=== PATIENT | male | born 1945 | race Caucasian/White ===

== ENCOUNTER 2020-12-09 16:02 | Inpatient (IN) | payer MEDICARE, OTHER ==
[~2020-12-09] VITALS: Ht 182.9 cm; Wt 88.9 kg
[2020-12-09 17:38] LABS: BASOPHILS # (AUTO) 0.1 K/uL (0.0-8.0); EOSINOPHILS # (AUTO) 0.2 K/uL (0.0-0.7); EOSINOPHILS % (AUTO) 2.2 % (0.0-7.0); HEMOGLOBIN 11.8 g/dL (12.5-16.3); LYMPHOCYTES % (AUTO) 34.7 % (20.5-51.5); MEAN CORPUSCULAR HEMOGLOBIN 30.4 uug (23.8-33.4); MEAN CORPUSCULAR HGB CONC 34 g/dL (32.5-36.3); MEAN CORPUSCULAR VOLUME 90.3 fL (73.0-96.2); MONOCYTES # (AUTO) 0.6 K/uL (2.0-10.0); MONOCYTES % (AUTO) 6.8 % (0.0-11.0); NEUTROPHILS # (AUTO) 4.7 K/uL (1.8-8.9); NEUTROPHILS % (AUTO) 55.3 % (38.5-71.5); PLATELET COUNT (AUTO) 228 K/uL (152-348); RED BLOOD CELL COUNT(AUTO) 3.88 MIL/uL (4.06-5.63); WHITE BLOOD COUNT (AUTO) 8.5 K/uL (3.6-10.2)
[2020-12-09 17:47] LABS: CARBON DIOXIDE 32 mmol/L (21-32); CHLORIDE 103 mmol/L (98-107); CREATININE 1.3 mg/dL (0.6-1.3); GLUCOSE 149 mg/dL (74-106); POTASSIUM 4.3 mmol/L (3.5-5.1); UREA NITROGEN, BLOOD 25 mg/dL (7-18)
[2020-12-09 17:54] LABS: ACETAMINOPHEN < 2.0 ug/mL (10-30); ALANINE AMINOTRANSFERASE 29 U/L (16-63); ALKALINE PHOSPHATASE 65 U/L (50-136); ASPARTATE AMINOTRANSFERASE 10 U/L (15-37); BILIRUBIN,DIRECT 0.1 mg/dL (0.0-0.2); BILIRUBIN,TOTAL 0.3 mg/dL (0.2-1.0); CREATINE KINASE, TOTAL 67 U/L (39-308); ETHANOL < 3 MG/DL (0-0)
[2020-12-09 18:00] LABS: THYROID STIMULATING HORMONE 1.412 mIU/mL (0.358-3.740)
[2020-12-09] MEDS ORDERED: CHOL-9 PO (18:35)
[2020-12-09] MEDS ORDERED: LISI10TA29 PO (18:35)
[2020-12-09] MEDS ORDERED: FERR325T30 PO (18:35)
[2020-12-09] MEDS ORDERED: MULT-594 PO (18:35)
[2020-12-09] MEDS ORDERED: ASCO500C6 PO (18:35)
[2020-12-09] MEDS ORDERED: TAMS-3 PO (18:35)
[2020-12-09] MEDS ORDERED: DIVA250T4 PO (18:35)
[2020-12-09] MEDS ORDERED: INSU100V7 SQ (18:35)
[2020-12-09] MEDS ORDERED: DEXT15DR6 EACHEYE (18:35)
[2020-12-09] MEDS ORDERED: BENZ0.5T43 PO (18:35)
[2020-12-09] MEDS ORDERED: BLOO-1152 MC (18:35)
[2020-12-09] MEDS ORDERED: ATOR40TA PO (18:35)
[2020-12-09] MEDS ORDERED: LEVE1000 PO (18:35)
[2020-12-09] MEDS ORDERED: AMLO5TAB4 PO (18:35)
[2020-12-09] MEDS ORDERED: NITR0.4T SL (18:35)
[2020-12-09 21:05] LABS: *BILIRUBIN,URIN NEGATIVE (NEGATIVE); *BLOOD, URINE NEGATIVE (NEGATIVE); *CLARITY,URINE CLEAR (CLEAR); *COLOR,URINE YELLOW (YELLOW); *KETONES,URINE NEGATIVE (NEGATIVE); *UROBILINOGEN,URINE 0.2 E.U./dl (NORMAL); LEUKOCYTE ESTERASE ,URINE NEGATIVE (NEGATIVE); NITRITE, URINE POSITIVE (NEGATIVE); PH,URINE 5.5 (5.0-8.0); UGLUCOSE NEGATIVE (NEGATIVE)
[2020-12-09 21:18] LABS: BACTERIA,URINE FEW /HPF (NONE SEEN); RBC,URINE 0-3 /HPF (0-3); WBC,URINE 0-3 /HPF (0-3)
[2020-12-09 21:19] LABS: SQUAMOUS EPITHELIAL CELL,UR NONE SEEN /HPF (NONE SEEN)
[2020-12-09 21:22] LABS: *AMPHETAMINE, URINE NEGATIVE (NEGATIVE); *CANNABINOID, URINE NEGATIVE (NEGATIVE); *COCCAINE, URINE NEGATIVE (NEGATIVE); *OPIATE, URINE NEGATIVE (NEGATIVE); *PHENCYCLIDINE SCREEN,URINE NEGATIVE (NEGATIVE)
[2020-12-09] MEDS ORDERED: DEXTROSE 50% 50 ML DISP.SYRIN IV PRN (23:00)
[2020-12-09] MEDS ORDERED: NITROGLYCERIN 0.4 MG/TAB BOTTLE SL PRN (23:00)
[2020-12-09] MEDS ORDERED: hydrALAZINE HCL 25 MG TABLET PO PRN (23:00)
--- NOTE | 2020-12-09 23:40 | NUR ---
transferd to MHU via gurny with no distress noted.
[2020-12-09 23:50] VITALS: BP 181/99
[2020-12-10] MEDS ORDERED: BLOOD SUGAR DIAGNOSTIC 1 EACH STRIP VI ONE
[2020-12-10] MEDS ORDERED: MAG HYDROX/AL HYDROX/SIMETH 30 ML LIQUID UDC PO PRN
[2020-12-10] MEDS ORDERED: ACETAMINOPHEN 325 MG TABLET PO PRN
[2020-12-10] MEDS ORDERED: TEMAZEPAM 7.5 MG CAPSULE PO PRN
[2020-12-10] MEDS ORDERED: MAGNESIUM HYDROXIDE 30 ML LIQUID UDC PO PRN
--- NOTE | 2020-12-10 04:13 | NUR ---
Pt received from ER at 2345 in a safe, stable condition. Admitted to MHU on 5150 DTS for severe depression, low motivation, low energy and being gravely disable. Pt denies hallucinations and SI. Assisted to his room, oriented to the unit and his surroundings. Upon assessment, pt is alert and oriented x 1. No complaints of pain at this time, pt is asleep with no s/s of distress. Cooperative with care and compliant with meds. Interacts appropriately with staff at the time of admission. Hydralazine PRN administered for increased BP. Safety precautions in place, pt kept comfortable. Frequent rounds done to ensure safety. Dr. Cramer and Dr. Paez aware of the admission. Will continue to monitor.
[2020-12-10] MEDS: levETIRAcetam 500 MG TABLET PO SCH ×2 (06:24→17:17)
--- NOTE | 2020-12-10 06:50 | NUR ---
Pt's customer contact representative, Germán Miguel ([email or web address]) attempted to be made aware of pt's admission to MHU per protocol. Message left on voicemail, requesting call back to the unit.
[2020-12-10 07:30] VITALS: BP 97/64
[2020-12-10] MEDS ORDERED: BLOOD SUGAR DIAGNOSTIC 1 EACH STRIP VI SCH (07:30)
[2020-12-10] MEDS: BLOOD SUGAR DIAGNOSTIC 1 EACH STRIP VI SCH ×4 (07:33→20:19)
[2020-12-10 08:18] LABS: BASOPHILS # (AUTO) 0.1 K/uL (0.0-8.0); BASOPHILS % (AUTO) 1.1 % (0.0-2.0); EOSINOPHILS # (AUTO) 0.2 K/uL (0.0-0.7); EOSINOPHILS % (AUTO) 1.9 % (0.0-7.0); HEMATOCRIT 37.5 % (36.7-47.1); HEMOGLOBIN 12.6 g/dL (12.5-16.3); LYMPHOCYTES # (AUTO) 2.5 K/uL (20.0-40.0); LYMPHOCYTES % (AUTO) 27.6 % (20.5-51.5); MEAN CORPUSCULAR HGB CONC 34 g/dL (32.5-36.3); MEAN CORPUSCULAR VOLUME 89.4 fL (73.0-96.2); MONOCYTES # (AUTO) 0.6 K/uL (2.0-10.0); MONOCYTES % (AUTO) 6.5 % (0.0-11.0); NEUTROPHILS # (AUTO) 5.6 K/uL (1.8-8.9); NEUTROPHILS % (AUTO) 62.9 % (38.5-71.5); PLATELET COUNT (AUTO) 225 K/uL (152-348); WHITE BLOOD COUNT (AUTO) 8.9 K/uL (3.6-10.2)
[2020-12-10] MEDS: INSULIN REGULAR, HUMAN 300 UNIT/3 ML VIAL SQ PRN ×3 (08:39→19:20)
[2020-12-10 08:42] LABS: THYROID STIMULATING HORMONE 1.307 mIU/mL (0.358-3.740)
[2020-12-10] MEDS: ASCORBIC ACID 500 MG TABLET PO SCH (08:55)
[2020-12-10] MEDS: CHOLECALCIFEROL 1,000 UNIT TABLET PO SCH (08:55)
[2020-12-10] MEDS: FERROUS SULFATE 325 MG TABEC PO SCH (08:55)
[2020-12-10] MEDS: MULTIVITAMINS,THERAPEUTIC TABLET PO SCH (08:55)
[2020-12-10] MEDS: AMLODIPINE 5 MG TABLET PO SCH (08:59)
[2020-12-10 09:00] LABS: BILIRUBIN,TOTAL 0.4 mg/dL (0.2-1.0); CREATININE 1.3 mg/dL (0.6-1.3); MAGNESIUM 1.7 mg/dL (1.8-2.4); POTASSIUM 4.2 mmol/L (3.5-5.1); TOTAL PROTEIN, SERUM 7.4 g/dL (6.4-8.2)
[2020-12-10] MEDS ORDERED: AMLODIPINE 5 MG TABLET PO SCH (09:00)
[2020-12-10] MEDS ORDERED: LISINOPRIL 10 MG TABLET PO SCH (09:00)
[2020-12-10] MEDS: LISINOPRIL 10 MG TABLET PO SCH (09:00)
--- NOTE | 2020-12-10 09:42 | NUR ---
Firearms Report: Manager Contact completed and submitted a [employer] firearms report for 5150 grave disability certification. A copy of report has been placed in patient chart.
--- NOTE | 2020-12-10 10:09 | NUR ---
SW Family Contact: This SW contacted patient's brother in law Dunlap ([phone]) to gather collateral and discuss treatment and discharge plan, however, he was unavailable and this SW left a voicemail.
--- NOTE | 2020-12-10 10:09 | NUR ---
SNF Contact: This SW contacted Gloria Stanley from [facility] [address] , [place] [address]; ([phone]) who stated pt is welcomed back upon dc.
--- NOTE | 2020-12-10 10:09 | NUR ---
SHILPA Initial Discharge Plan: Patient currently resides at [facility] [address] [place] [address]; ([phone]). Patient would want to return back to [facility], [place] he has been a resident there for many years. This SW contacted patient's brother in [facility] ([phone]) to gather collater and discuss treatment and discharge plan, however, he was unavailable and this SW left a voicemail. SW will coordinate with patient, family, and MD to coordinate proper discharge.
--- NOTE | 2020-12-10 10:13 | NUR ---
Substance Abuse Intervention: Patient was provided with a brief substance abuse intervention and referred to [facility] ([phone]), [facility] ([phone]), and [facility] ([phone]) for marijuana use.
[2020-12-10 15:02] VITALS: BP 130/63
[2020-12-10] MEDS: DIVALPROEX 250 MG TABLET.DR PO SCH ×2 (16:52→20:14)
[2020-12-10 20:10] VITALS: BP 161/79
[2020-12-10 20:12] VITALS: BP 131/72
[2020-12-10] MEDS: ATORVASTATIN 40 MG TABLET PO SCH (20:14)
[2020-12-10] MEDS: TAMSULOSIN HCL 0.4 MG CAP.SR.24H PO SCH (20:14)
[2020-12-10] MEDS: INSULIN GLARGINE,HUM 300 UNITS/3 ML CARTRIDGE SQ SCH (20:21)
--- NOTE | 2020-12-11 00:12 | NUR ---
RECEIVED PATIENT IN A YOANA CHAIR IN THE HALLWAY. NOTED LOW ENERGY. HOWEVER COMPLIANT WITH MEDICATIONS. BLOOD SUGAR CHECK WAS 130 AND INSULIN LANTUS WAS GIVEN AFTER EATING SOME SNACKS. IN HIS ROOM AND SLEEPING. VISUAL CHECKS MADE ON HIM FOR SAFETY. WILL CONTINUE WITH MONITORING.
[2020-12-11] MEDS: LORAZEPAM 1 MG TABLET PO PRN (01:27)
[2020-12-11] MEDS: levETIRAcetam 500 MG TABLET PO SCH ×2 (06:15→17:11)
--- NOTE | 2020-12-11 06:28 | NUR ---
PATIENT SLEPT FOR 5:30 HOURS. GIVEN A SHOWER AND BACK IN BED. BLOOD SUGAR CHECK WAS 161.
[2020-12-11] MEDS: BLOOD SUGAR DIAGNOSTIC 1 EACH STRIP VI SCH ×4 (06:43→20:13)
[2020-12-11 07:30] VITALS: BP 134/69
[2020-12-11 07:30] LABS: BASOPHILS # (AUTO) 0.1 K/uL (0.0-8.0); EOSINOPHILS # (AUTO) 0.2 K/uL (0.0-0.7); EOSINOPHILS % (AUTO) 2.2 % (0.0-7.0); HEMATOCRIT 36.4 % (36.7-47.1); HEMOGLOBIN 12.5 g/dL (12.5-16.3); LYMPHOCYTES # (AUTO) 2.8 K/uL (20.0-40.0); LYMPHOCYTES % (AUTO) 30.1 % (20.5-51.5); MEAN CORPUSCULAR HEMOGLOBIN 30.7 uug (23.8-33.4); MEAN CORPUSCULAR HGB CONC 34 g/dL (32.5-36.3); MEAN CORPUSCULAR VOLUME 89.2 fL (73.0-96.2); MONOCYTES # (AUTO) 0.7 K/uL (2.0-10.0); NEUTROPHILS # (AUTO) 5.6 K/uL (1.8-8.9); NEUTROPHILS % (AUTO) 59.7 % (38.5-71.5); PLATELET COUNT (AUTO) 210 K/uL (152-348); RED BLOOD CELL COUNT(AUTO) 4.08 MIL/uL (4.06-5.63); WHITE BLOOD COUNT (AUTO) 9.5 K/uL (3.6-10.2)
[2020-12-11 07:51] LABS: BILIRUBIN,TOTAL 0.4 mg/dL (0.2-1.0); CREATININE 1.2 mg/dL (0.6-1.3); MAGNESIUM 1.8 mg/dL (1.8-2.4); PHOSPHOROUS 3.6 mg/dL (2.5-4.9); POTASSIUM 3.9 mmol/L (3.5-5.1)
[2020-12-11] MEDS: CHOLECALCIFEROL 1,000 UNIT TABLET PO SCH (08:38)
[2020-12-11] MEDS: FERROUS SULFATE 325 MG TABEC PO SCH (08:39)
[2020-12-11] MEDS: ASCORBIC ACID 500 MG TABLET PO SCH (08:39)
[2020-12-11] MEDS: MULTIVITAMINS,THERAPEUTIC TABLET PO SCH (08:39)
[2020-12-11] MEDS: AMLODIPINE 5 MG TABLET PO SCH (08:39)
[2020-12-11] MEDS: LISINOPRIL 10 MG TABLET PO SCH (08:39)
[2020-12-11] MEDS: DIVALPROEX 250 MG TABLET.DR PO SCH ×2 (08:39→20:26)
[2020-12-11] MEDS ORDERED: AMLODIPINE 10 MG TABLET PO SCH (09:00)
[2020-12-11] MEDS: INSULIN REGULAR, HUMAN 300 UNIT/3 ML VIAL SQ PRN (12:21)
[2020-12-11 16:06] VITALS: BP 119/35
[2020-12-11] MEDS: CEphaleXIN 500 MG CAPSULE PO SCH (17:11)
[2020-12-11 20:01] VITALS: BP 109/59
[2020-12-11] MEDS: INSULIN REGULAR, HUMAN 300 UNITS/3 ML VIAL SQ PRN (20:24)
[2020-12-11] MEDS: INSULIN GLARGINE,HUM 300 UNITS/3 ML CARTRIDGE SQ SCH (20:25)
[2020-12-11] MEDS: TAMSULOSIN HCL 0.4 MG CAP.SR.24H PO SCH (20:26)
[2020-12-11] MEDS: ATORVASTATIN 40 MG TABLET PO SCH (20:26)
--- NOTE | 2020-12-12 04:52 | NUR ---
Received patient on 12/11/20 at 1900 in his eugenio chair, med compliant, interacts with staff upon approach, isolative, patient has poor insight and poor judgement. Patient will remain in a psych facility for further evaluation and treatment.
[2020-12-12] MEDS: levETIRAcetam 500 MG TABLET PO SCH ×2 (06:23→17:49)
[2020-12-12] MEDS: BLOOD SUGAR DIAGNOSTIC 1 EACH STRIP VI SCH ×4 (06:36→20:13)
[2020-12-12 07:30] VITALS: BP 128/69
[2020-12-12 08:06] LABS: A/G RATIO 1.1 (0.7-1.7); ALBUMIN 3.3 g/dL (2.9-4.4); ALPHA-1-GLOBULIN 0.2 g/dL (0.0-0.4); ALPHA-2-GLOBULIN 0.7 g/dL (0.4-1.0); BETA GLOBULIN 0.9 g/dL (0.7-1.3); GLOBULIN, TOTAL 2.9 g/dL (2.2-3.9); M-SPIKE Not Observed g/dL (Not Observed)
[2020-12-12] MEDS: CEphaleXIN 500 MG CAPSULE PO SCH ×2 (08:54→17:48)
[2020-12-12] MEDS: AMLODIPINE 10 MG TABLET PO SCH (08:56)
[2020-12-12] MEDS: CHOLECALCIFEROL 1,000 UNIT TABLET PO SCH (08:56)
[2020-12-12] MEDS: ASCORBIC ACID 500 MG TABLET PO SCH (08:57)
[2020-12-12] MEDS: DIVALPROEX 250 MG TABLET.DR PO SCH ×2 (08:57→20:13)
[2020-12-12] MEDS: MULTIVITAMINS,THERAPEUTIC TABLET PO SCH (08:57)
[2020-12-12] MEDS: FERROUS SULFATE 325 MG TABEC PO SCH (08:57)
[2020-12-12] MEDS: LISINOPRIL 20 MG TABLET PO SCH (08:57)
[2020-12-12] MEDS: INSULIN REGULAR, HUMAN 300 UNIT/3 ML VIAL SQ PRN ×2 (08:59→11:57)
[2020-12-12 17:00] VITALS: BP 91/50
[2020-12-12 20:02] VITALS: BP 115/55
[2020-12-12] MEDS: TAMSULOSIN HCL 0.4 MG CAP.SR.24H PO SCH (20:13)
[2020-12-12] MEDS: ATORVASTATIN 40 MG TABLET PO SCH (20:14)
[2020-12-12] MEDS: INSULIN GLARGINE,HUM 300 UNITS/3 ML CARTRIDGE SQ SCH (20:16)
[2020-12-12] MEDS: INSULIN REGULAR, HUMAN 300 UNITS/3 ML VIAL SQ PRN (20:18)
[2020-12-13] MEDS: levETIRAcetam 500 MG TABLET PO SCH ×2 (06:55→17:39)
[2020-12-13] MEDS: BLOOD SUGAR DIAGNOSTIC 1 EACH STRIP VI SCH ×4 (07:01→21:07)
[2020-12-13 07:09] LABS: BASOPHILS # (AUTO) 0.1 K/uL (0.0-8.0); BASOPHILS % (AUTO) 0.4 % (0.0-2.0); EOSINOPHILS # (AUTO) 0.1 K/uL (0.0-0.7); EOSINOPHILS % (AUTO) 0.9 % (0.0-7.0); HEMATOCRIT 36.8 % (36.7-47.1); HEMOGLOBIN 12.1 g/dL (12.5-16.3); LYMPHOCYTES # (AUTO) 3.1 K/uL (20.0-40.0); LYMPHOCYTES % (AUTO) 23.1 % (20.5-51.5); MEAN CORPUSCULAR HEMOGLOBIN 29.7 uug (23.8-33.4); MEAN CORPUSCULAR HGB CONC 33 g/dL (32.5-36.3); MEAN CORPUSCULAR VOLUME 90.2 fL (73.0-96.2); MONOCYTES # (AUTO) 0.7 K/uL (2.0-10.0); MONOCYTES % (AUTO) 5.4 % (0.0-11.0); NEUTROPHILS # (AUTO) 9.4 K/uL (1.8-8.9); NEUTROPHILS % (AUTO) 70.2 % (38.5-71.5); PLATELET COUNT (AUTO) 229 K/uL (152-348); RED BLOOD CELL COUNT(AUTO) 4.08 MIL/uL (4.06-5.63); WHITE BLOOD COUNT (AUTO) 13.5 K/uL (3.6-10.2)
[2020-12-13 07:15] LABS: CARBON DIOXIDE 32 mmol/L (21-32); CHLORIDE 104 mmol/L (98-107); CREATININE 1.6 mg/dL (0.6-1.3); GLUCOSE 142 mg/dL (74-106); POTASSIUM 3.9 mmol/L (3.5-5.1); UREA NITROGEN, BLOOD 35 mg/dL (7-18)
[2020-12-13 07:30] VITALS: BP 95/51
[2020-12-13] MEDS: ASCORBIC ACID 500 MG TABLET PO SCH (08:27)
[2020-12-13] MEDS: CEphaleXIN 500 MG CAPSULE PO SCH ×2 (08:27→17:39)
[2020-12-13] MEDS: CHOLECALCIFEROL 1,000 UNIT TABLET PO SCH (08:28)
[2020-12-13] MEDS: MULTIVITAMINS,THERAPEUTIC TABLET PO SCH (08:28)
[2020-12-13] MEDS: DIVALPROEX 250 MG TABLET.DR PO SCH ×2 (08:28→21:07)
[2020-12-13] MEDS: FERROUS SULFATE 325 MG TABEC PO SCH (08:28)
[2020-12-13] MEDS: LISINOPRIL 20 MG TABLET PO SCH (08:31)
[2020-12-13] MEDS: AMLODIPINE 10 MG TABLET PO SCH (08:31)
[2020-12-13] MEDS: GLUCERNA SHAKE VANILLA 237 ML CAN PO SCH (09:30)
[2020-12-13] MEDS: INSULIN REGULAR, HUMAN 300 UNIT/3 ML VIAL SQ PRN ×2 (12:09→17:55)
[2020-12-13] MEDS: SERTRALINE HCL 50 MG TABLET PO SCH (14:45)
[2020-12-13 17:22] VITALS: BP 106/49
[2020-12-13 20:00] VITALS: BP 103/51
[2020-12-13] MEDS: ATORVASTATIN 40 MG TABLET PO SCH (21:07)
[2020-12-13] MEDS: TAMSULOSIN HCL 0.4 MG CAP.SR.24H PO SCH (21:07)
[2020-12-13] MEDS: INSULIN REGULAR, HUMAN 300 UNITS/3 ML VIAL SQ PRN (21:11)
[2020-12-13] MEDS: INSULIN GLARGINE,HUM 300 UNITS/3 ML CARTRIDGE SQ SCH (21:12)
[2020-12-14] MEDS: levETIRAcetam 500 MG TABLET PO SCH ×2 (05:40→17:22)
--- NOTE | 2020-12-14 06:24 | NUR ---
Received patient in the eugenio chair. Passive in conversation. Assisted the patient back into bed. Compliant with medications and care provided. Slept 8.30 hours. All patient needs were met and attended to.
[2020-12-14 07:30] VITALS: BP 128/52
[2020-12-14 07:40] LABS: BASOPHILS # (AUTO) 0.1 K/uL (0.0-8.0); EOSINOPHILS # (AUTO) 0.2 K/uL (0.0-0.7); EOSINOPHILS % (AUTO) 2.1 % (0.0-7.0); HEMATOCRIT 35.4 % (36.7-47.1); HEMOGLOBIN 11.8 g/dL (12.5-16.3); LYMPHOCYTES # (AUTO) 2.8 K/uL (20.0-40.0); LYMPHOCYTES % (AUTO) 33.8 % (20.5-51.5); MEAN CORPUSCULAR HEMOGLOBIN 29.9 uug (23.8-33.4); MEAN CORPUSCULAR HGB CONC 33 g/dL (32.5-36.3); MEAN CORPUSCULAR VOLUME 89.6 fL (73.0-96.2); MONOCYTES # (AUTO) 0.5 K/uL (2.0-10.0); MONOCYTES % (AUTO) 6.2 % (0.0-11.0); NEUTROPHILS # (AUTO) 4.7 K/uL (1.8-8.9); NEUTROPHILS % (AUTO) 56.9 % (38.5-71.5); PLATELET COUNT (AUTO) 217 K/uL (152-348); RED BLOOD CELL COUNT(AUTO) 3.95 MIL/uL (4.06-5.63); WHITE BLOOD COUNT (AUTO) 8.2 K/uL (3.6-10.2)
[2020-12-14] MEDS: BLOOD SUGAR DIAGNOSTIC 1 EACH STRIP VI SCH ×4 (08:06→20:20)
[2020-12-14 08:39] LABS: CREATININE 1.2 mg/dL (0.6-1.3); MAGNESIUM 1.8 mg/dL (1.8-2.4); PHOSPHOROUS 3.9 mg/dL (2.5-4.9)
[2020-12-14] MEDS: MULTIVITAMINS,THERAPEUTIC TABLET PO SCH (08:46)
[2020-12-14] MEDS: DIVALPROEX 250 MG TABLET.DR PO SCH ×2 (08:46→20:20)
[2020-12-14] MEDS: CHOLECALCIFEROL 1,000 UNIT TABLET PO SCH (08:46)
[2020-12-14] MEDS: FERROUS SULFATE 325 MG TABEC PO SCH (08:46)
[2020-12-14] MEDS: LISINOPRIL 20 MG TABLET PO SCH (08:47)
[2020-12-14] MEDS: ASCORBIC ACID 500 MG TABLET PO SCH (08:52)
[2020-12-14] MEDS: CEphaleXIN 500 MG CAPSULE PO SCH ×2 (08:52→17:22)
[2020-12-14] MEDS: AMLODIPINE 10 MG TABLET PO SCH (08:52)
[2020-12-14] MEDS: GLUCERNA SHAKE VANILLA 237 ML CAN PO SCH (09:00)
[2020-12-14] MEDS: SERTRALINE HCL 50 MG TABLET PO SCH (12:15)
[2020-12-14] MEDS: INSULIN REGULAR, HUMAN 300 UNIT/3 ML VIAL SQ PRN ×2 (12:19→17:34)
[2020-12-14 15:51] VITALS: BP 95/59
[2020-12-14] MEDS: LOPERAMIDE HCL 2 MG CAPSULE PO PRN (17:22)
--- NOTE | 2020-12-14 17:30 | NUR ---
pt was noted to have loose stools x2 this shift. PRN Imodium was given at 1722. Pt is to be monitored for future incidents
[2020-12-14 20:00] VITALS: BP 123/61
[2020-12-14] MEDS: ATORVASTATIN 40 MG TABLET PO SCH (20:20)
[2020-12-14] MEDS: TAMSULOSIN HCL 0.4 MG CAP.SR.24H PO SCH (20:20)
[2020-12-14] MEDS: INSULIN GLARGINE,HUM 300 UNITS/3 ML CARTRIDGE SQ SCH (20:23)
[2020-12-14] MEDS: INSULIN REGULAR, HUMAN 300 UNITS/3 ML VIAL SQ PRN (20:31)
[2020-12-15] MEDS: levETIRAcetam 500 MG TABLET PO SCH ×2 (05:49→17:32)
[2020-12-15] MEDS: BLOOD SUGAR DIAGNOSTIC 1 EACH STRIP VI SCH ×4 (06:38→20:13)
--- NOTE | 2020-12-15 06:40 | NUR ---
Received Pt in bed sleeping, arouses easily. A+O x2, Pt is confused but able to verbalize his needs. Pt presents with quiet, garbled speech. Compliant with medications, ADLs attended to. Peears depressed, is isolative and withdrawn. Gives minimal disclosure. Denies SI, verbally contracts for safety. VS stable, denies pain. NS BS 155, 2 units coverage per sliding scale. AM BS 123. Slept 8 hours.
[2020-12-15 07:30] VITALS: BP 154/73
[2020-12-15] MEDS: CEphaleXIN 500 MG CAPSULE PO SCH ×2 (08:57→17:29)
[2020-12-15] MEDS: CHOLECALCIFEROL 1,000 UNIT TABLET PO SCH (08:57)
[2020-12-15] MEDS: DIVALPROEX 250 MG TABLET.DR PO SCH ×2 (08:57→20:16)
[2020-12-15] MEDS: ASCORBIC ACID 500 MG TABLET PO SCH (08:57)
[2020-12-15] MEDS: FERROUS SULFATE 325 MG TABEC PO SCH (08:57)
[2020-12-15] MEDS: LISINOPRIL 20 MG TABLET PO SCH (08:58)
[2020-12-15] MEDS: MULTIVITAMINS,THERAPEUTIC TABLET PO SCH (08:58)
[2020-12-15] MEDS: AMLODIPINE 10 MG TABLET PO SCH (08:58)
[2020-12-15] MEDS: GLUCERNA SHAKE VANILLA 237 ML CAN PO SCH (08:59)
[2020-12-15] MEDS: INSULIN REGULAR, HUMAN 300 UNIT/3 ML VIAL SQ PRN ×2 (12:14→17:31)
[2020-12-15] MEDS: SERTRALINE HCL 50 MG TABLET PO SCH (12:21)
[2020-12-15 15:25] VITALS: BP 106/49
[2020-12-15 20:11] VITALS: BP 116/62
[2020-12-15] MEDS: TAMSULOSIN HCL 0.4 MG CAP.SR.24H PO SCH (20:16)
[2020-12-15] MEDS: ATORVASTATIN 40 MG TABLET PO SCH (20:16)
[2020-12-15] MEDS: INSULIN GLARGINE,HUM 300 UNITS/3 ML CARTRIDGE SQ SCH (20:37)
[2020-12-15] MEDS: INSULIN REGULAR, HUMAN 300 UNITS/3 ML VIAL SQ PRN (20:38)
[2020-12-16] MEDS: levETIRAcetam 500 MG TABLET PO SCH ×2 (05:51→17:01)
[2020-12-16] MEDS: BLOOD SUGAR DIAGNOSTIC 1 EACH STRIP VI SCH ×4 (06:42→20:46)
[2020-12-16 07:30] VITALS: BP 107/63
[2020-12-16] MEDS: CHOLECALCIFEROL 1,000 UNIT TABLET PO SCH (08:56)
[2020-12-16] MEDS: FERROUS SULFATE 325 MG TABEC PO SCH (08:56)
[2020-12-16] MEDS: AMLODIPINE 10 MG TABLET PO SCH (08:57)
[2020-12-16] MEDS: MULTIVITAMINS,THERAPEUTIC TABLET PO SCH (08:58)
[2020-12-16] MEDS: LISINOPRIL 20 MG TABLET PO SCH (08:58)
[2020-12-16] MEDS: ASCORBIC ACID 500 MG TABLET PO SCH (08:58)
[2020-12-16] MEDS: DIVALPROEX 250 MG TABLET.DR PO SCH ×2 (08:58→20:35)
[2020-12-16] MEDS: GLUCERNA SHAKE VANILLA 237 ML CAN PO SCH (09:01)
[2020-12-16] MEDS: INSULIN REGULAR, HUMAN 300 UNIT/3 ML VIAL SQ PRN ×3 (09:04→16:56)
--- NOTE | 2020-12-16 09:40 | NUR ---
Court Hearing: Patient's court hearing was today for 5250 and it was upheld for GD and DTS.
[2020-12-16] MEDS: SERTRALINE HCL 50 MG TABLET PO SCH ×2 (12:27→21:53)
--- NOTE | 2020-12-16 15:12 | NUR ---
SW Individual Therapy: bunk house worker met with patient for brief counseling to help address patients presenting problem for SI. Patient denies SI. Patient did appear depressed and withdrawn. He expressed to this SW that he is depressed because his sister two weeks ago. Patient stated that he doesn't really have any family left. This SW provided support and actively listened.
[2020-12-16 15:54] VITALS: BP 130/70
[2020-12-16 20:18] VITALS: BP 143/76
[2020-12-16] MEDS: ATORVASTATIN 40 MG TABLET PO SCH (20:35)
[2020-12-16] MEDS: TAMSULOSIN HCL 0.4 MG CAP.SR.24H PO SCH (20:35)
[2020-12-16] MEDS: INSULIN GLARGINE,HUM 300 UNITS/3 ML CARTRIDGE SQ SCH (20:44)
[2020-12-16] MEDS: INSULIN REGULAR, HUMAN 300 UNITS/3 ML VIAL SQ PRN (20:45)
--- NOTE | 2020-12-17 02:13 | NUR ---
Patient alert able to make his known. Patient complain of lower back pain, request for tylenol 650mg as ordered. Patient has no s/s of hypo/hypergylcemia noted, ate night snack. Patient cooperative with care and medications, calm at this time, Patient request total assist with adl's, kept clean and dry, cont to monitor.
[2020-12-17] MEDS: levETIRAcetam 500 MG TABLET PO SCH ×2 (05:54→17:07)
[2020-12-17] MEDS: BLOOD SUGAR DIAGNOSTIC 1 EACH STRIP VI SCH ×4 (06:16→20:07)
[2020-12-17 07:30] VITALS: BP 123/63
[2020-12-17] MEDS: DIVALPROEX 250 MG TABLET.DR PO SCH ×2 (08:19→20:03)
[2020-12-17] MEDS: CHOLECALCIFEROL 1,000 UNIT TABLET PO SCH (08:19)
[2020-12-17] MEDS: MULTIVITAMINS,THERAPEUTIC TABLET PO SCH (08:19)
[2020-12-17] MEDS: AMLODIPINE 10 MG TABLET PO SCH (08:20)
[2020-12-17] MEDS: LISINOPRIL 20 MG TABLET PO SCH (08:20)
[2020-12-17] MEDS: GLUCERNA SHAKE VANILLA 237 ML CAN PO SCH (08:20)
[2020-12-17] MEDS: FERROUS SULFATE 325 MG TABEC PO SCH (08:20)
[2020-12-17] MEDS: ASCORBIC ACID 500 MG TABLET PO SCH (08:20)
[2020-12-17] MEDS: INSULIN REGULAR, HUMAN 300 UNIT/3 ML VIAL SQ PRN ×3 (09:03→16:24)
[2020-12-17] MEDS: SERTRALINE HCL 50 MG TABLET PO SCH ×2 (12:52→20:03)
[2020-12-17 15:55] VITALS: BP 125/63
[2020-12-17] MEDS: LORAZEPAM 1 MG TABLET PO PRN (15:59)
--- NOTE | 2020-12-17 17:23 | NUR ---
Patient remains in uegenio-chair most of the time. Assisted to the bathroom couple of times. BM x3 in small amount. Patient noted to remove front table in eugenio-chair despite of education. Ativan 1mg PRN given once time with good effect. no c/o of pain/discomfort noted. will continue monitor
[2020-12-17] MEDS: LOPERAMIDE HCL 2 MG CAPSULE PO PRN (20:03)
[2020-12-17] MEDS: ATORVASTATIN 40 MG TABLET PO SCH (20:03)
[2020-12-17] MEDS: INSULIN GLARGINE,HUM 300 UNITS/3 ML CARTRIDGE SQ SCH (20:06)
[2020-12-17] MEDS: INSULIN REGULAR, HUMAN 300 UNITS/3 ML VIAL SQ PRN (20:12)
[2020-12-17] MEDS: TAMSULOSIN HCL 0.4 MG CAP.SR.24H PO SCH (20:12)
[2020-12-17 20:18] VITALS: BP 98/62
[2020-12-18] MEDS: levETIRAcetam 500 MG TABLET PO SCH ×2 (05:23→17:01)
[2020-12-18] MEDS: BLOOD SUGAR DIAGNOSTIC 1 EACH STRIP VI SCH ×4 (06:10→20:50)
--- NOTE | 2020-12-18 06:25 | NUR ---
Pt asleep but arousable, no complaints of pain. Slept 7.15hrs, no s/s of distress. Compliant with his meds during the shift. Gibson juice offered this AM, consumed 1 cup. LBM noted at the start of shift, Imodium PRN administered. Safety precautions in place, frequent checks done.
[2020-12-18 07:30] VITALS: BP 114/52
[2020-12-18 07:48] LABS: BASOPHILS # (AUTO) 0.1 K/uL (0.0-8.0); BASOPHILS % (AUTO) 0.9 % (0.0-2.0); EOSINOPHILS # (AUTO) 0.2 K/uL (0.0-0.7); EOSINOPHILS % (AUTO) 2.6 % (0.0-7.0); HEMATOCRIT 36.6 % (36.7-47.1); HEMOGLOBIN 12.2 g/dL (12.5-16.3); LYMPHOCYTES # (AUTO) 2.6 K/uL (20.0-40.0); LYMPHOCYTES % (AUTO) 31.1 % (20.5-51.5); MEAN CORPUSCULAR HGB CONC 33 g/dL (32.5-36.3); MEAN CORPUSCULAR VOLUME 89.8 fL (73.0-96.2); MONOCYTES # (AUTO) 0.6 K/uL (2.0-10.0); MONOCYTES % (AUTO) 7.1 % (0.0-11.0); NEUTROPHILS # (AUTO) 4.9 K/uL (1.8-8.9); NEUTROPHILS % (AUTO) 58.3 % (38.5-71.5); PLATELET COUNT (AUTO) 209 K/uL (152-348); RED BLOOD CELL COUNT(AUTO) 4.08 MIL/uL (4.06-5.63); WHITE BLOOD COUNT (AUTO) 8.4 K/uL (3.6-10.2)
--- NOTE | 2020-12-18 08:00 | NUR ---
RECEIVED PATIENT IN BED AWAKE ALERT AND VERBALLY RESPONSIVE DR MOSES HERE TO SEE AND EXAMINE PATIENT WITH NO NEW ORDERS AT THIS TIME.
[2020-12-18 08:02] LABS: BILIRUBIN,TOTAL 0.3 mg/dL (0.2-1.0); CREATININE 1.1 mg/dL (0.6-1.3); POTASSIUM 4.5 mmol/L (3.5-5.1); TOTAL PROTEIN, SERUM 6.6 g/dL (6.4-8.2)
[2020-12-18] MEDS: ASCORBIC ACID 500 MG TABLET PO SCH (08:56)
[2020-12-18] MEDS: MULTIVITAMINS,THERAPEUTIC TABLET PO SCH (08:56)
[2020-12-18] MEDS: CHOLECALCIFEROL 1,000 UNIT TABLET PO SCH (08:57)
[2020-12-18] MEDS: DIVALPROEX 250 MG TABLET.DR PO SCH (08:57)
[2020-12-18] MEDS: FERROUS SULFATE 325 MG TABEC PO SCH (08:57)
[2020-12-18] MEDS: LISINOPRIL 20 MG TABLET PO SCH (08:58)
[2020-12-18] MEDS: AMLODIPINE 10 MG TABLET PO SCH (08:58)
[2020-12-18] MEDS: GLUCERNA SHAKE VANILLA 237 ML CAN PO SCH (09:05)
[2020-12-18] MEDS: INSULIN REGULAR, HUMAN 300 UNIT/3 ML VIAL SQ PRN ×2 (11:52→16:57)
[2020-12-18] MEDS: SERTRALINE HCL 50 MG TABLET PO SCH ×3 (12:21→21:49)
--- NOTE | 2020-12-18 15:13 | NUR ---
SHILPA Individual Therapy: youth worker met with patient for brief counseling to help address patients presenting problem for SI. Patient denies SI. Patient did appear depressed and withdrawn. Patient continues to express that he is depressed because of his losses in his family. Patient stated his "depression is bugging him". SHILPA encouraged pt to participate in group and to be active.
[2020-12-18 16:00] VITALS: BP 110/50
--- NOTE | 2020-12-18 17:00 | NUR ---
NOTED AN EPISODE OF DIARRHEA MEDICATED WITH IMMODIUM ORDERED.
[2020-12-18] MEDS: LOPERAMIDE HCL 2 MG CAPSULE PO PRN (17:01)
--- NOTE | 2020-12-18 18:00 | NUR ---
DR RODRIGUEZ HERE AND SEEN PATIENT NOTIFIED HIM THAT PATIENT HAS FUNGAL INFECTION ON HIS LOWER ABDOMEN AND GROIN WITH NEW ORDERS AND NOTED.
[2020-12-18 20:22] VITALS: BP 90/53
[2020-12-18] MEDS: TAMSULOSIN HCL 0.4 MG CAP.SR.24H PO SCH (20:32)
[2020-12-18] MEDS: DIVALPROEX 500 MG TABLET.DR PO SCH (20:32)
[2020-12-18] MEDS: ATORVASTATIN 40 MG TABLET PO SCH (20:32)
[2020-12-18] MEDS: INSULIN GLARGINE,HUM 300 UNITS/3 ML CARTRIDGE SQ SCH (21:04)
[2020-12-18] MEDS: INSULIN REGULAR, HUMAN 300 UNITS/3 ML VIAL SQ PRN (21:05)
[2020-12-18] MEDS: CLOTRIMAZOLE/BETAMET DIPROP CREAM 15 GM TUBE TOP SCH (21:49)
--- NOTE | 2020-12-18 21:50 | NUR ---
Patient blood pressure low 90/53, zoloft was held, Patient to drowsy held the meds. cont to monitor.
--- NOTE | 2020-12-19 04:45 | NUR ---
Patient asleep but arousable, patient cooperative with medication and care, requires total care, incontinent of bladder. Patient has no complain of pain, calm at this time.
[2020-12-19 06:04] LABS: *BILIRUBIN,URIN NEGATIVE (NEGATIVE); *BLOOD, URINE NEGATIVE (NEGATIVE); *CLARITY,URINE CLEAR (CLEAR); *COLOR,URINE YELLOW (YELLOW); *KETONES,URINE NEGATIVE (NEGATIVE); *UROBILINOGEN,URINE 0.2 E.U./dl (NORMAL); LEUKOCYTE ESTERASE ,URINE NEGATIVE (NEGATIVE); NITRITE, URINE NEGATIVE (NEGATIVE); PH,URINE 5.5 (5.0-8.0); UGLUCOSE NEGATIVE (NEGATIVE)
[2020-12-19] MEDS: levETIRAcetam 500 MG TABLET PO SCH ×2 (06:13→17:14)
[2020-12-19] MEDS: BLOOD SUGAR DIAGNOSTIC 1 EACH STRIP VI SCH ×4 (06:21→20:35)
[2020-12-19 07:13] VITALS: BP 118/54
[2020-12-19 07:30] VITALS: BP 137/67
--- NOTE | 2020-12-19 07:38 | NUR ---
IN BED AWAKE ALERT ALL NEEDS MUST BE ANTICIPATED AND SATISFIED MAX ASSIST FOR ALL ADL PATIENT IS COOPERATIVE WITH LOW VOICE AND LOW ENERGY WILL CONTINUE TO PROVIDE SAFE AND THERAPEUTIC ENVIRONMENT AT ALL TIMES.
[2020-12-19] MEDS: MULTIVITAMINS,THERAPEUTIC TABLET PO SCH (08:49)
[2020-12-19] MEDS: DIVALPROEX 250 MG TABLET.DR PO SCH (08:49)
[2020-12-19] MEDS: ASCORBIC ACID 500 MG TABLET PO SCH (08:49)
[2020-12-19] MEDS: CHOLECALCIFEROL 1,000 UNIT TABLET PO SCH (08:49)
[2020-12-19] MEDS: FERROUS SULFATE 325 MG TABEC PO SCH (08:49)
[2020-12-19] MEDS: LISINOPRIL 20 MG TABLET PO SCH (08:50)
[2020-12-19] MEDS: AMLODIPINE 10 MG TABLET PO SCH (08:50)
[2020-12-19] MEDS: GLUCERNA SHAKE VANILLA 237 ML CAN PO SCH (08:51)
[2020-12-19] MEDS: CLOTRIMAZOLE/BETAMET DIPROP CREAM 15 GM TUBE TOP SCH ×2 (09:47→20:35)
[2020-12-19] MEDS: INSULIN REGULAR, HUMAN 300 UNIT/3 ML VIAL SQ PRN ×2 (11:32→16:53)
[2020-12-19] MEDS: SERTRALINE HCL 50 MG TABLET PO SCH ×2 (12:51→20:33)
--- NOTE | 2020-12-19 15:00 | NUR ---
DR MOSES HERE TO SEE AND EXAMINE PATIENT WITH NO NEW ORDERS BUT WITH DISCHARGE PLANNING AT THIS TIME ALERT MORE AWAKE BUT STILL WITH LOW VOICE NO S/S OF HYPO/HYPERGLYCEMIC REACTIONS AT THIS TIME.
[2020-12-19 16:00] VITALS: BP 111/58
[2020-12-19 20:05] VITALS: BP 116/62
[2020-12-19] MEDS: DIVALPROEX 500 MG TABLET.DR PO SCH (20:33)
[2020-12-19] MEDS: ATORVASTATIN 40 MG TABLET PO SCH (20:34)
[2020-12-19] MEDS: TAMSULOSIN HCL 0.4 MG CAP.SR.24H PO SCH (20:34)
[2020-12-19] MEDS: INSULIN GLARGINE,HUM 300 UNITS/3 ML CARTRIDGE SQ SCH (20:36)
[2020-12-19] MEDS ORDERED: CULTURELLE CAPSULE PO SCH (21:00)
[2020-12-19] MEDS ORDERED: ACIDOPHILUS/BULGARICUS CHEW TAB ONE (21:32)
[2020-12-19] MEDS: ACIDOPHILUS/BULGARICUS CHEW TAB PO SCH (22:39)
[2020-12-20] MEDS: levETIRAcetam 500 MG TABLET PO SCH ×2 (05:52→17:46)
--- NOTE | 2020-12-20 06:23 | NUR ---
Patient slept 8.00 hours.
[2020-12-20] MEDS: BLOOD SUGAR DIAGNOSTIC 1 EACH STRIP VI SCH ×4 (06:32→20:47)
[2020-12-20 07:30] VITALS: BP 123/63
--- NOTE | 2020-12-20 07:30 | NUR ---
Awake, in the gerichair, calm and cooperative
[2020-12-20] MEDS: DIVALPROEX 250 MG TABLET.DR PO SCH (08:35)
[2020-12-20] MEDS: FERROUS SULFATE 325 MG TABEC PO SCH (08:35)
[2020-12-20] MEDS: LISINOPRIL 20 MG TABLET PO SCH (08:36)
[2020-12-20] MEDS: AMLODIPINE 10 MG TABLET PO SCH (08:36)
[2020-12-20] MEDS: MULTIVITAMINS,THERAPEUTIC TABLET PO SCH (08:36)
[2020-12-20] MEDS: ASCORBIC ACID 500 MG TABLET PO SCH (08:36)
[2020-12-20] MEDS: CHOLECALCIFEROL 1,000 UNIT TABLET PO SCH (08:37)
[2020-12-20] MEDS: INSULIN REGULAR, HUMAN 300 UNIT/3 ML VIAL SQ PRN ×3 (08:38→17:52)
[2020-12-20] MEDS: CLOTRIMAZOLE/BETAMET DIPROP CREAM 15 GM TUBE TOP SCH ×2 (08:40→20:48)
[2020-12-20] MEDS: GLUCERNA SHAKE VANILLA 237 ML CAN PO SCH (08:41)
[2020-12-20] MEDS: ACIDOPHILUS/BULGARICUS CHEW TAB PO SCH ×2 (09:36→20:47)
--- NOTE | 2020-12-20 10:29 | NUR ---
Calm and compliant with taking of medications. With fair appetite
[2020-12-20] MEDS: SERTRALINE HCL 50 MG TABLET PO SCH ×2 (12:18→20:47)
--- NOTE | 2020-12-20 13:38 | NUR ---
Participating in the activity. With fair appetite. Compliant with taking of medications
--- NOTE | 2020-12-20 15:19 | NUR ---
SHILPA Individual Therapy: emergency service worker met with patient for brief counseling to help address patients presenting problem for SI. Patient denies SI. Patient presented with euthymic mood. Patient appeared to be happier and stated that he is feeling less depressed. Patient reported that his treatment here at the hospital has been helpful. SW actively listened and provided emotional support.
[2020-12-20 17:22] VITALS: BP 92/53
--- NOTE | 2020-12-20 18:14 | NUR ---
Had shower, sleeping after, comfortable
[2020-12-20] MEDS: DIVALPROEX 500 MG TABLET.DR PO SCH (20:47)
[2020-12-20] MEDS: ATORVASTATIN 40 MG TABLET PO SCH (20:47)
[2020-12-20] MEDS: TAMSULOSIN HCL 0.4 MG CAP.SR.24H PO SCH (20:47)
[2020-12-20] MEDS: INSULIN GLARGINE,HUM 300 UNITS/3 ML CARTRIDGE SQ SCH (20:48)
[2020-12-20 20:49] VITALS: BP 115/50
[2020-12-21] MEDS: levETIRAcetam 500 MG TABLET PO SCH ×2 (05:28→17:01)
--- NOTE | 2020-12-21 06:32 | NUR ---
Patient slept a total of 7.00 hours.
[2020-12-21] MEDS: BLOOD SUGAR DIAGNOSTIC 1 EACH STRIP VI SCH ×4 (06:33→19:53)
[2020-12-21 07:30] VITALS: BP 99/63
[2020-12-21] MEDS: FERROUS SULFATE 325 MG TABEC PO SCH (08:40)
[2020-12-21] MEDS: MULTIVITAMINS,THERAPEUTIC TABLET PO SCH (08:41)
[2020-12-21] MEDS: CHOLECALCIFEROL 1,000 UNIT TABLET PO SCH (08:41)
[2020-12-21] MEDS: CLOTRIMAZOLE/BETAMET DIPROP CREAM 15 GM TUBE TOP SCH ×2 (08:42→20:45)
[2020-12-21] MEDS: ASCORBIC ACID 500 MG TABLET PO SCH (08:42)
[2020-12-21] MEDS: DIVALPROEX 250 MG TABLET.DR PO SCH (08:42)
[2020-12-21] MEDS: ACIDOPHILUS/BULGARICUS CHEW TAB PO SCH ×2 (08:42→20:42)
[2020-12-21] MEDS: AMLODIPINE 10 MG TABLET PO SCH (08:43)
[2020-12-21] MEDS: LISINOPRIL 20 MG TABLET PO SCH (08:43)
[2020-12-21] MEDS: GLUCERNA SHAKE VANILLA 237 ML CAN PO SCH (08:44)
[2020-12-21] MEDS: INSULIN REGULAR, HUMAN 300 UNIT/3 ML VIAL SQ PRN ×3 (08:54→17:04)
[2020-12-21] MEDS: SERTRALINE HCL 50 MG TABLET PO SCH ×2 (12:04→20:41)
[2020-12-21 16:00] VITALS: BP 124/65
[2020-12-21 20:00] VITALS: BP 109/56
[2020-12-21] MEDS: ATORVASTATIN 40 MG TABLET PO SCH (20:41)
[2020-12-21] MEDS: DIVALPROEX 500 MG TABLET.DR PO SCH (20:41)
[2020-12-21] MEDS: TAMSULOSIN HCL 0.4 MG CAP.SR.24H PO SCH (20:41)
[2020-12-21] MEDS: INSULIN GLARGINE,HUM 300 UNITS/3 ML CARTRIDGE SQ SCH (20:44)
[2020-12-22] MEDS: levETIRAcetam 500 MG TABLET PO SCH ×2 (06:17→17:37)
[2020-12-22] MEDS: BLOOD SUGAR DIAGNOSTIC 1 EACH STRIP VI SCH ×4 (06:17→20:12)
--- NOTE | 2020-12-22 06:23 | NUR ---
This patient slept 9.45 hours last night. Medication compliant, calm and in no distress. The patient is slow to respond, confused, but pleasant. No behavioral or emotional issues noted . Continuing to monitor for SI and safety strategies are in place.
[2020-12-22] MEDS: ACIDOPHILUS/BULGARICUS CHEW TAB PO SCH ×2 (08:18→20:12)
[2020-12-22] MEDS: MULTIVITAMINS,THERAPEUTIC TABLET PO SCH (08:18)
[2020-12-22] MEDS: CLOTRIMAZOLE/BETAMET DIPROP CREAM 15 GM TUBE TOP SCH ×2 (08:18→20:18)
[2020-12-22] MEDS: CHOLECALCIFEROL 1,000 UNIT TABLET PO SCH (08:18)
[2020-12-22] MEDS: DIVALPROEX 250 MG TABLET.DR PO SCH (08:18)
[2020-12-22] MEDS: FERROUS SULFATE 325 MG TABEC PO SCH (08:18)
[2020-12-22] MEDS: ASCORBIC ACID 500 MG TABLET PO SCH (08:19)
[2020-12-22] MEDS: AMLODIPINE 10 MG TABLET PO SCH (08:19)
[2020-12-22] MEDS: LISINOPRIL 20 MG TABLET PO SCH (08:19)
[2020-12-22] MEDS: GLUCERNA SHAKE VANILLA 237 ML CAN PO SCH (08:20)
[2020-12-22 08:31] VITALS: BP 98/62
--- NOTE | 2020-12-22 08:56 | NUR ---
Received pt. in Jhonathan-chair AAOX2. vitals stable no c/of pain compliant with medications and nursing care. Easily interacting with staff when engaged.
[2020-12-22] MEDS: INSULIN REGULAR, HUMAN 300 UNIT/3 ML VIAL SQ PRN (11:40)
[2020-12-22] MEDS: SERTRALINE HCL 50 MG TABLET PO SCH ×2 (12:15→20:12)
[2020-12-22] MEDS: DIVALPROEX 500 MG TABLET.DR PO SCH (20:12)
[2020-12-22] MEDS: ATORVASTATIN 40 MG TABLET PO SCH (20:12)
[2020-12-22] MEDS: LORAZEPAM 1 MG TABLET PO PRN (20:13)
[2020-12-22] MEDS: TAMSULOSIN HCL 0.4 MG CAP.SR.24H PO SCH (20:13)
[2020-12-22] MEDS: INSULIN REGULAR, HUMAN 300 UNITS/3 ML VIAL SQ PRN (20:14)
[2020-12-22] MEDS: INSULIN GLARGINE,HUM 300 UNITS/3 ML CARTRIDGE SQ SCH (20:17)
[2020-12-22 20:24] VITALS: BP 111/60
[2020-12-23] MEDS: levETIRAcetam 500 MG TABLET PO SCH (06:12)
[2020-12-23] MEDS: LOPERAMIDE HCL 2 MG CAPSULE PO PRN (06:16)
[2020-12-23] MEDS: BLOOD SUGAR DIAGNOSTIC 1 EACH STRIP VI SCH (06:17)
[2020-12-23 07:30] VITALS: BP 115/63
[2020-12-23] MEDS: ACIDOPHILUS/BULGARICUS CHEW TAB PO SCH (08:46)
[2020-12-23] MEDS: CHOLECALCIFEROL 1,000 UNIT TABLET PO SCH (08:46)
[2020-12-23] MEDS: FERROUS SULFATE 325 MG TABEC PO SCH (08:46)
[2020-12-23] MEDS: ASCORBIC ACID 500 MG TABLET PO SCH (08:46)
[2020-12-23] MEDS: DIVALPROEX 250 MG TABLET.DR PO SCH (08:46)
[2020-12-23] MEDS: MULTIVITAMINS,THERAPEUTIC TABLET PO SCH (08:46)
[2020-12-23 08:47] VITALS: BP 115/63
[2020-12-23] MEDS: AMLODIPINE 10 MG TABLET PO SCH (08:47)
[2020-12-23] MEDS: LISINOPRIL 20 MG TABLET PO SCH (08:47)
[2020-12-23] MEDS: GLUCERNA SHAKE VANILLA 237 ML CAN PO SCH (08:48)
[2020-12-23] MEDS: CLOTRIMAZOLE/BETAMET DIPROP CREAM 15 GM TUBE TOP SCH (08:48)
--- NOTE | 2020-12-23 09:52 | NUR ---
Discharge Note: Patient will be discharged to [facility] facility, [facility] [place] [address] [place] [address]; ([phone]) via transportation at 11AM provided by [facility]. Licensed Mental Health Counselor spoke with Gloria Sales Performance Analyst at [facility]; ([phone]) who stated patient will be accepted back at facility today. This SW left patients brother in law Germán ([phone]) a voicemail in terms of patients discharge. Patient is alert and oriented x2 and is unable to plan for self-care. Patient denies any suicidal or homicidal ideation. Patient denies visual/auditory hallucination. Patient is aware and agreeable with discharge plans. Patient will continue to follow-up with Psychiatrist Dr. Maynard and Comptroller Dr. Ley at [facility] [place] [address] [place] [address]; ([phone]) and will follow up to discuss smoking cessation at the facility. Patient was provided with a brief substance abuse intervention and referred to [facility] , [facility] , and [facility] . Patient presents with euthymic mood and congruent affect.
--- NOTE | 2020-12-23 10:12 | NUR ---
GPS: Nursing Notes: Refusing for Pictures to be Taken: Patient refusing for pictures to be taken, stated "I want to rest..", continue with discharge planning.
--- NOTE | 2020-12-23 11:30 | NUR ---
GPS: Nursing Notes: Discharge Notes: Patient is awake and responding to his name, cooperative with nursing care, compliant with his medications, following staff directions, ambulatory with fww/assistance, denies SI/HI, denies AH/VH, denies pain or discomfort at this time, denies SOB, discharge to [facility] at [address] [place] [address] . Report given to facility's nurse - DOMO Martínez, took all his belongings with him, picked up by facility's transportation. Patient will continue to follow-up with (Psychiatrist) Dr. Maynard and (Pattern Fitter) Dr. Ley at [facility] [address] [place] [address]; ([phone]) and will follow up to discuss smoking cessation at the facility. Patient was provided with a brief substance abuse intervention and referred to [facility] , [facility] , and [facility] .
--- NOTE | 2020-12-25 15:06 | NUR ---
Social Work Note/Substance Abuse Follow-up: Substance abuse follow up intervention excluded due to patient being discharged to a longterm facility. Addendum: 12/25/20 at 1506 by SHILPA JONAS wrong patient
== END 2020-12-23 11:30 | DRG 885 ==
LOC: ER 16:02 → GPS 22:43
PROVIDERS: ADMIT Psychiatry & Neurology Psychosomatic Medicine; ATTEND Student in an Organized Health Care Education/Training Program
DX: F31.30 Bipolar disorder, current episode depressed, mild or moderate severity, unspecified (principal); F01.50 Vascular dementia, unspecified severity, without behavioral disturbance, psychotic disturbance, mood disturbance, and anxiety; N18.9 Chronic kidney disease, unspecified; N17.0 Acute kidney failure with tubular necrosis; E11.65 Type 2 diabetes mellitus with hyperglycemia; N39.0 Urinary tract infection, site not specified; G40.909 Epilepsy, unspecified, not intractable, without status epilepticus; E83.42 Hypomagnesemia; E86.0 Dehydration; J44.9 Chronic obstructive pulmonary disease, unspecified; E11.319 Type 2 diabetes mellitus with unspecified diabetic retinopathy without macular edema; E78.5 Hyperlipidemia, unspecified; I12.9 Hypertensive chronic kidney disease with stage 1 through stage 4 chronic kidney disease, or unspecified chronic kidney disease; Z86.73 Personal history of transient ischemic attack (TIA), and cerebral infarction without residual deficits; E11.22 Type 2 diabetes mellitus with diabetic chronic kidney disease; D64.9 Anemia, unspecified; F12.90 Cannabis use, unspecified, uncomplicated; N40.1 Benign prostatic hyperplasia with lower urinary tract symptoms; Z20.822 Contact with and (suspected) exposure to COVID-19; Z79.4 Long term (current) use of insulin
CPT/HCPCS: 36415; 70450; 76770; 80164; 83735; 83970; 84100; 84155; 84165; 84443; 85025; 87086; 93005; A4663; G0480; J1815; J3490; U0003